=== PATIENT | male | born 1995 | race Caucasian/White ===

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

== ENCOUNTER 2022-04-03 22:10 | Emergency (ER) | payer BC ==
[2022-04-03] MEDS ORDERED: Sodium Chloride 0.9% 10 ML Syringe FLUSH PRN (23:25)
[2022-04-04 00:09] LABS: ESTIMATED GFR 72 mL/min (>60)
[2022-04-04] MEDS ORDERED: Ondansetron 4 MG/2 ML SDV IVPUSH ONE (01:21)
[2022-04-04] MEDS ORDERED: Loperamide 2 MG Cap PO STA (01:21)
[2022-04-04] MEDS ORDERED: Sodium Chloride 0.9% 1,000 ML IV ONE (01:21)
[2022-04-04] MEDS ORDERED: Magnesium Sulfate/Water 4 GM in Premix Bag 1 BAG IV ONE (01:23)
[2022-04-04] MEDS ORDERED: Sodium Chloride 0.9% 1,000 ML IV SCH (03:00)
[2022-04-04 06:12] VITALS: BP 104/63; PULSE 67
== END 2022-04-04 06:10 | disposition home or self-care (01) ==
LOC: JD.ED 22:10
DX: A08.4 Viral intestinal infection, unspecified (principal); E83.42 Hypomagnesemia; N17.9 Acute kidney failure, unspecified; R73.9 Hyperglycemia, unspecified; E80.4 Gilbert syndrome
CPT/HCPCS: 36415; 80053; 83690; 83735; 85025; 86140; 96365; 96366; 96375; 99284; A9270; J2405; J3475; J3490; J7030